=== PATIENT | male | born 1965 | race African-American/Black ===

== ENCOUNTER 2018-07-24 16:50 | Inpatient (IN) | payer BC, OTHER ==
--- NOTE | 2018-07-25 00:29 | HP ---
COWS - Scale Resting Pulse: 0= [place] 80 or Below Sweatin=Flushed/Facial Moisture Restless Observation: 0= Sits Still Pupil Size: 1= Pupils >than Normal Bone or Joint Aches: 4=Acute Joint/Muscle Pain Runny Nose/ Eye Tearin= Runny Nose/Eyes GI Upset > 30mins: 1= Stomach Cramp Tremor Observation: 2= Slight Tremor Visible Yawning Observation: 0= None Anxiety or Irritability: 4=Extreme Anxiety Goose Flesh Skin: 0=Smooth Skin COWS Score: 16 CIWA Score - Admission Criteria [facility]ASAS Guidelines: Admission for Medically Managed Detox: Requires at least one of the followin. CIWA greater than 12 2. Seizures within the past 24 hours 3. Delirium tremens within the past 24 hours 4. Hallucinations within the past 24 hours 5. Acute intervention needed for co occurring medical disorder 6. Acute intervention needed for co occurring psychiatric disorder 7. Severe withdrawal that cannot be handled at a lower level of care (continued vomiting, continued diarrhea, abnormal vital signs) requiring intravenous medication and/or fluids 8. Admission ROS [facility] Chief Complaint: Heroin withdrawal symptom s Allergies/Adverse Reactions: Allergies Allergy/AdvReac Type Severity Reaction Status Date / Time No Known Allergies Allergy Verified 07/25/18 00:25 History of Present Illness: 52 years old male with 21 years history of heroin dependence is seeking admission to detox. Patient has been in previous detox at [facility] and reports 8 years of sobriety. He has medical history of asthma, hypertension, depression and anxiety. He denies suicide attempt and suicidal ideation at this time. This is his first admission to [facility]. Exam Limitations: No Limitations - Ebola screening Have you traveled outside of the country in the last 21 days: No Have you had contact with anyone from an Ebola affected area: No Have you been sick,other than usual withdrawal symptoms: No Do you have a fever: No - Review of Systems Constitutional: Chills, Night Sweats, Changes in sleep EENT: reports: Nose Congestion Respiratory: reports: No Symptoms reported Cardiac: reports: No Symptoms Reported GI: reports: Diarrhea, Poor Appetite, Poor Fluid Intake, Vomiting, Abdominal cramping : reports: No Symptoms Reported Musculoskeletal: reports: Back Pain Integumentary: reports: Dryness, Flushing Neuro: reports: Tremors Endocrine: reports: No Symptoms Reported Hematology: reports: No Symptoms Reported Psychiatric: reports: Mood/Affect Appropiate, Anxious, Depressed Other Systems: Reviewed and Negative Patient History - Patient Medical History Hx Anemia: No Hx Asthma: Yes (Albuterol) Hx Chronic Obstructive Pulmonary Disease (COPD): No Hx Cancer: No Hx Cardiac Disorders: No Hx Congestive Heart Failure: No Hx Hypertension: Yes (Not on medication) Hx Hypercholesterolemia: No Hx Pacemaker: No HX Cerebrovascular Accident: No Hx Seizures: No Hx Dementia: No Hx Diabetes: No Hx Gastrointestinal Disorders: No Hx Liver Disease: No Hx Genitourinary Disorders: No Hx Sexually Transmitted Disorders: No Hx Renal Disease (ESRD): No Hx Thyroid Disease: No Hx Human Immunodeficiency Virus (HIV): No (Negative 2018) Hx Hepatitis C: No Hx Depression: Yes (Not on medication) Hx Suicide Attempt: No (Denies suicidal ideation at this time) Hx Bipolar Disorder: No Hx Schizophrenia: No Other Medical History: Anxiety - Not on medication - Patient Surgical History Past Surgical History: No - PPD History Previous Implant?: No Documented Results: Negative w/o proof Implanted On Prior [facility] Admission?: No PPD to be Administered?: Yes - Reproductive History Patient is a Female of Child Bearing Age (11 -55 yrs old): No (Male) - Smoking Cessation Smoking history: Current every day smoker Have you smoked in the past 12 months: Yes Aproximately how many cigarettes per day: 10 Hx Chewing Tobacco Use: No Initiated information on smoking cessation: Yes 'Breaking Loose' booklet given: 07/25/18 - Substance & Tx. History Hx Alcohol Use: No Hx Substance Use: Yes Substance Use Type: Cocaine, Opiates Hx Substance Use Treatment: Yes - Substances Abused Heroin Route: Inhalation Frequency: Daily Amount used: 6 bags to 1 bundle Age of first use: 21 Date of Last Use: 07/24/18 Family Disease History - Family Disease History Family Disease History: Heart Disease: Father, Mother Admission Physical Exam [facility] - Vital Signs Vital Signs: Vital Signs - 24 hr 07/24/18 20:41 Temperature 98.7 F Pulse Rate 73 Respiratory 18 Rate Blood Pressure 121/64 - Physical General Appearance: Yes: Moderate Distress, Tremorous, Irritable, Anxious HEENTM: Yes: EOMI, Normal ENT Inspection, Normal Voice, DORIE Respiratory: Yes: Lungs Clear, Normal Breath Sounds, No Respiratory Distress Neck: Yes: Supple Breast: Yes: Breast Exam Deferred Cardiology: Yes: Regular Rhythm, Regular Rate Abdominal: Yes: Normal Bowel Sounds, Soft Genitourinary: Yes: Within Normal Limits Back: Yes: Normal Inspection Musculoskeletal: Yes: Within Normal Limits Extremities: Yes: Tremors Neurological: Yes: Alert, Normal Mood/Affect Integumentary: Yes: Warm Lymphatic: Yes: Within Normal Limits - Diagnostic (1) Opioid dependence with withdrawal Current Visit: Yes Status: Chronic (2) Hypertension Current Visit: Yes Status: Chronic Qualifiers: Hypertension type: essential hypertension Qualified Code(s): I10 - Essential (primary) hypertension (3) Asthma Current Visit: Yes Status: Chronic Qualifiers: Asthma severity: mild Asthma persistence: intermittent Asthma complication type: unspecified Qualified Code(s): J45.20 - Mild intermittent asthma, uncomplicated (4) Depression Current Visit: Yes Status: Chronic Qualifiers: Depression Type: unspecified Qualified Code(s): F32.9 - Major depressive disorder, single episode, unspecified (5) Anxiety Current Visit: Yes Status: Chronic Cleared for Admission [facility] - Detox or Rehab [facility] Level of Care: Medically Managed Detox Regimen/Protocol: Methadone [facility] Breath Alcohol Content Breath Alcohol Content: 0 Urine Drug Screen - Results Drug Screen Negative: No Urine Drug Screen Results: MARLEE-Cocaine, OPI-Opiates, FEN-Fentanyl Inpatient Rehab Admission - Rehab Decision to Admit Inpatient rehab admission?: No
[2018-07-25] MEDS ORDERED: METHOCARBAMOL 500 MG TABLET PO PRN (00:45)
[2018-07-25] MEDS ORDERED: MENTHOL/PHENOL 1 EACH UD MM PRN (00:45)
[2018-07-25] MEDS ORDERED: MELATONIN 5 MG TABLETS PO PRN (00:45)
[2018-07-25] MEDS ORDERED: IBUPROFEN 400 MG TABLET (FP) PO PRN (00:45)
[2018-07-25] MEDS ORDERED: ACETAMINOPHEN 325 MG TABLET (FP) PO PRN ×2 (00:45)
[2018-07-25] MEDS ORDERED: hydrOXYzine PAMOATE 25 MG CAPSULE (FP) PO PRN (00:45)
[2018-07-25] MEDS ORDERED: NICOTINE POLACRILEX 2 MG GUM BUC PRN (00:45)
[2018-07-25] MEDS ORDERED: MAGNESIUM HYDROX 2400MG/30ML ORAL SUSPENSION 30 ML CUP PO PRN (00:45)
[2018-07-25] MEDS ORDERED: BISMUTH SUBSALICYLATE 524 MG/30 ML UD PO PRN (00:45)
[2018-07-25] MEDS ORDERED: cloNIDine HCL 0.1 MG TABLET PO PRN (00:45)
[2018-07-25] MEDS ORDERED: MAGNESIUM CITRATE 300 ML BOTTLE PO PRN (00:45)
[2018-07-25] MEDS ORDERED: MAG HYDROX/AL HYDROX/SIMETH 30 ML UNIT-DOSE CUP PO PRN (00:45)
[2018-07-25] MEDS ORDERED: METHADONE HCL 10 MG TABLET (FOR DETOX USE ONLY) PO ONE ×2 (00:55→10:55)
[2018-07-25] MEDS: PRENATAL VITAMINS W/ FOLIC ACID TABLET (FP) PO SCH (10:26)
[2018-07-25] MEDS: NICOTINE 14 MG/24 HOURS TOPICAL PATCH TD SCH (10:26)
[2018-07-25] MEDS ORDERED: diazePAM 5 MG TABLET PO ONE (10:34)
[2018-07-25] MEDS ORDERED: SODIUM CHLORIDE NASAL SPRAY 44 ML BOTTLE NS PRN (10:36)
[2018-07-25] MEDS ORDERED: P-EPHED 60MG/TRIPROLIDI 2.5MG TABLET PO PRN ×2 (10:37→11:38)
--- NOTE | 2018-07-25 11:38 | PN ---
[facility] COWS - Scale Resting Pulse: 0= [place] 80 or Below Sweatin=Flushed/Facial Moisture Restless Observation: 1= Difficult to Sit Still Pupil Size: 0= Normal to Room Light Bone or Joint Aches: 2= Severe Diffuse Aches Runny Nose/ Eye Tearin= None GI Upset > 30mins: 2= Nausea/Diarrhea Tremor Observation of Outstretched Hands: 2= Slight Tremor Visible Yawning Observation: 2= >3x During Session Anxiety or Irritability: 2=Irritable/Anxious Goose Flesh Skin: 0=Smooth Skin COWS Score: 13 [facility] Progress Note (SOAP) Subjective: sweats shakes interrupted sleep agitation irritable body aches nasal congestion Objective: 07/25/18 11:36 Vital Signs Temperature 97.8 F 07/25/18 09:35 Pulse Rate 60 07/25/18 09:35 Respiratory Rate 18 07/25/18 09:35 Blood Pressure 125/73 07/25/18 09:35 O2 Sat by Pulse Oximetry (%) labs pending aaox3 ambulating no acute distress Assessment: 07/25/18 11:36 withdrawal sx Plan: continue detox increase fluids labs pending methadone 10mg x one ordered valium prn acitifed prn ocean spray
[2018-07-25] MEDS: diazePAM 5 MG TABLET PO PRN (22:40)
[2018-07-25] MEDS: THIAMINE HCL 100 MG TABLET (FP) PO SCH (22:40)
[2018-07-26] MEDS ORDERED: METHADONE HCL 10 MG TABLET (FOR DETOX USE ONLY) PO ONE (10:00)
[2018-07-26] MEDS: PRENATAL VITAMINS W/ FOLIC ACID TABLET (FP) PO SCH (10:18)
[2018-07-26] MEDS: NICOTINE 14 MG/24 HOURS TOPICAL PATCH TD SCH (10:18)
--- NOTE | 2018-07-26 11:36 | PN ---
[facility] COWS - Scale Resting Pulse: 0= [place] 80 or Below Sweatin=Flushed/Facial Moisture Restless Observation: 1= Difficult to Sit Still Pupil Size: 0= Normal to Room Light Bone or Joint Aches: 2= Severe Diffuse Aches Runny Nose/ Eye Tearin= Nasal Congestion GI Upset > 30mins: 0= None Tremor Observation of Outstretched Hands: 2= Slight Tremor Visible Yawning Observation: 1= 1-2x During Session Anxiety or Irritability: 2=Irritable/Anxious Goose Flesh Skin: 0=Smooth Skin COWS Score: 11 [facility] Progress Note (SOAP) Subjective: agitation sweats shakes interrupted sleep Objective: 07/26/18 11:36 Vital Signs Temperature 97.5 F L 07/26/18 09:56 Pulse Rate 60 07/26/18 09:56 Respiratory Rate 16 07/26/18 09:56 Blood Pressure 146/89 07/26/18 09:56 O2 Sat by Pulse Oximetry (%) labs pending aaox3 ambulating no acute distress Assessment: 07/26/18 11:36 withdrawal sx Plan: continue detox increase fluids labs pending
[2018-07-26] MEDS: diazePAM 5 MG TABLET PO PRN (12:14)
[2018-07-26 12:51] LABS: HEMATOCRIT 41.1 % (35.4-49); HEMOGLOBIN 13.7 GM/dL (11.7-16.9); MCH 30.8 pg (25.7-33.7); MCHC 33.4 g/dl (32.0-35.9); MEAN CELL VOLUME 92.5 fl (80-96); MEAN PLT VOLUME 8.3 fl (7.5-11.1); PLATELET COUNT 258 K/MM3 (134-434); RBC 4.45 M/mm3 (4.00-5.60); WHITE BLOOD COUNT 2.8 K/mm3 (4.0-10.0)
[2018-07-26 13:05] LABS: ALBUMIN 3.2 g/dl (3.4-5.0); ALK PHOS 84 U/L (45-117); ANION GAP 7 MMOL/L (8-16); BILIRUBIN,TOTAL 0.5 mg/dL (0.2-1); BLOOD UREA NITROGEN 10 mg/dL (7-18); CALCIUM 8.8 mg/dL (8.5-10.1); CHLORIDE 107 mmol/L (98-107); CO2 27 mmol/L (21-32); CREATININE 0.9 mg/dL (0.55-1.3); GLUCOSE,RANDOM 130 mg/dL (74-106); POTASSIUM 4.1 mmol/L (3.5-5.1); SGOT/AST 27 U/L (15-37); SGPT/ALT 30 U/L (13-61); SODIUM 141 mmol/L (136-145)
[2018-07-26] MEDS: THIAMINE HCL 100 MG TABLET (FP) PO SCH (22:10)
[2018-07-27] MEDS ORDERED: METHADONE HCL 10 MG TABLET (FOR DETOX USE ONLY) PO ONE (10:00)
[2018-07-27] MEDS: PRENATAL VITAMINS W/ FOLIC ACID TABLET (FP) PO SCH (10:29)
[2018-07-27] MEDS: NICOTINE 14 MG/24 HOURS TOPICAL PATCH TD SCH (10:29)
--- NOTE | 2018-07-27 10:35 | PN ---
[facility] Progress Note (SOAP) Subjective: irritable agitation sweats Objective: 07/27/18 10:35 Vital Signs Temperature 98.1 F 07/27/18 09:41 Pulse Rate 74 07/27/18 09:41 Respiratory Rate 18 07/27/18 09:41 Blood Pressure 143/92 07/27/18 09:41 O2 Sat by Pulse Oximetry (%) aaox3 ambulating no acute distress Assessment: 07/27/18 10:36 withdrawal sx Plan: continue detox increase fluids
[2018-07-27] MEDS: diazePAM 5 MG TABLET PO PRN (12:56)
[2018-07-28] MEDS ORDERED: METHADONE HCL 10 MG TABLET (FOR DETOX USE ONLY) PO ONE (10:00)
[2018-07-28] MEDS: PRENATAL VITAMINS W/ FOLIC ACID TABLET (FP) PO SCH (10:09)
[2018-07-28] MEDS: NICOTINE 14 MG/24 HOURS TOPICAL PATCH TD SCH (10:09)
--- NOTE | 2018-07-28 12:38 | PN ---
[facility] Progress Note (SOAP) Subjective: agitation Objective: 07/28/18 12:35 Vital Signs Temperature 97.5 F L 07/28/18 10:09 Pulse Rate 75 07/28/18 10:09 Respiratory Rate 18 07/28/18 10:09 Blood Pressure 141/71 07/28/18 10:09 O2 Sat by Pulse Oximetry (%) aaox3 ambulating no acute distress Assessment: 07/28/18 12:36 mild withdrawal Plan: continue detox d/c in am
[2018-07-29] MEDS ORDERED: METHADONE HCL 5 MG TABLET (FOR DETOX USE ONLY) PO ONE (06:00)
[2018-07-29] MEDS: NICOTINE 14 MG/24 HOURS TOPICAL PATCH TD SCH (10:55)
[2018-07-29] MEDS: PRENATAL VITAMINS W/ FOLIC ACID TABLET (FP) PO SCH (10:55)
--- NOTE | 2018-07-29 14:27 | PN ---
[facility] Progress Note (SOAP) Subjective: Mild shakes and irritability Objective: 07/29/18 14:26 Vital Signs 07/29/18 07/29/18 08:32 09:45 Temperature 96.3 F L 97.7 F Pulse Rate 59 L 85 Respiratory 18 18 Rate Blood Pressure 119/71 150/74 Laboratory Last Values WBC 2.8 K/mm3 (4.0-10.0) L 07/26/18 08:00 RBC 4.45 M/mm3 (4.00-5.60) 07/26/18 08:00 Hgb 13.7 GM/dL (11.7-16.9) 07/26/18 08:00 Hct 41.1 % (35.4-49) 07/26/18 08:00 MCV 92.5 fl (80-96) 07/26/18 08:00 MCH 30.8 pg (25.7-33.7) 07/26/18 08:00 MCHC 33.4 g/dl (32.0-35.9) 07/26/18 08:00 RDW 14.0 % (11.9-15.9) 07/26/18 08:00 Plt Count 258 K/MM3 (134-434) 07/26/18 08:00 MPV 8.3 fl (7.5-11.1) 07/26/18 08:00 Sodium 141 mmol/L (136-145) 07/26/18 08:00 Potassium 4.1 mmol/L (3.5-5.1) 07/26/18 08:00 Chloride 107 mmol/L (98-107) 07/26/18 08:00 Carbon Dioxide 27 mmol/L (21-32) 07/26/18 08:00 Anion Gap 7 MMOL/L (8-16) L 07/26/18 08:00 BUN 10 mg/dL (7-18) 07/26/18 08:00 Creatinine 0.9 mg/dL (0.55-1.3) 07/26/18 08:00 Creat Clearance w eGFR 88.27 (>60) 07/26/18 08:00 Random Glucose 130 mg/dL (74-106) H 07/26/18 08:00 Calcium 8.8 mg/dL (8.5-10.1) 07/26/18 08:00 Total Bilirubin 0.5 mg/dL (0.2-1) 07/26/18 08:00 AST 27 U/L (15-37) 07/26/18 08:00 ALT 30 U/L (13-61) 07/26/18 08:00 Alkaline Phosphatase 84 U/L (45-117) 07/26/18 08:00 Total Protein 6.0 g/dl (6.4-8.2) L 07/26/18 08:00 Albumin 3.2 g/dl (3.4-5.0) L 07/26/18 08:00 RPR Titer Nonreactive (NONREACTIVE) 07/26/18 08:00 Labs noted Assessment: 07/29/18 14:27 Withdrawal sx Plan: Continue detox
--- NOTE | 2018-07-29 15:38 | DS ---
[facility] Detox Discharge Summary Admission Date: 07/24/18 Discharge Date: 07/29/18 - History Pertinent Past History: Asthma, depression, hypertension - Physical Exam Results Vital Signs: Vital Signs Temperature 97.7 F 07/29/18 09:45 Pulse Rate 85 07/29/18 09:45 Respiratory Rate 18 07/29/18 09:45 Blood Pressure 150/74 07/29/18 09:45 O2 Sat by Pulse Oximetry (%) Pertinent Admission Physical Exam Findings: Withdrawal sx Laboratory Last Values WBC 2.8 K/mm3 (4.0-10.0) L 07/26/18 08:00 RBC 4.45 M/mm3 (4.00-5.60) 07/26/18 08:00 Hgb 13.7 GM/dL (11.7-16.9) 07/26/18 08:00 Hct 41.1 % (35.4-49) 07/26/18 08:00 MCV 92.5 fl (80-96) 07/26/18 08:00 MCH 30.8 pg (25.7-33.7) 07/26/18 08:00 MCHC 33.4 g/dl (32.0-35.9) 07/26/18 08:00 RDW 14.0 % (11.9-15.9) 07/26/18 08:00 Plt Count 258 K/MM3 (134-434) 07/26/18 08:00 MPV 8.3 fl (7.5-11.1) 07/26/18 08:00 Sodium 141 mmol/L (136-145) 07/26/18 08:00 Potassium 4.1 mmol/L (3.5-5.1) 07/26/18 08:00 Chloride 107 mmol/L (98-107) 07/26/18 08:00 Carbon Dioxide 27 mmol/L (21-32) 07/26/18 08:00 Anion Gap 7 MMOL/L (8-16) L 07/26/18 08:00 BUN 10 mg/dL (7-18) 07/26/18 08:00 Creatinine 0.9 mg/dL (0.55-1.3) 07/26/18 08:00 Creat Clearance w eGFR 88.27 (>60) 07/26/18 08:00 Random Glucose 130 mg/dL (74-106) H 07/26/18 08:00 Calcium 8.8 mg/dL (8.5-10.1) 07/26/18 08:00 Total Bilirubin 0.5 mg/dL (0.2-1) 07/26/18 08:00 AST 27 U/L (15-37) 07/26/18 08:00 ALT 30 U/L (13-61) 07/26/18 08:00 Alkaline Phosphatase 84 U/L (45-117) 07/26/18 08:00 Total Protein 6.0 g/dl (6.4-8.2) L 07/26/18 08:00 Albumin 3.2 g/dl (3.4-5.0) L 07/26/18 08:00 RPR Titer Nonreactive (NONREACTIVE) 07/26/18 08:00 Labs noted - Treatment Hospital Course: Detox Protocol Followed, Detoxed Safely, Responded well, Discharged Condition Good, Rehab Referral Accepted Patient has Accepted a Rehab Referral to: [facility] Rehab - Medication Discharge Medications: Ambulatory Orders NK [No Known Home Medication] 07/27/18 - Diagnosis (1) Anxiety Current Visit: Yes Status: Chronic (2) Asthma Current Visit: Yes Status: Chronic Qualifiers: Asthma severity: mild Asthma persistence: intermittent Asthma complication type: unspecified Qualified Code(s): J45.20 - Mild intermittent asthma, uncomplicated (3) Depression Current Visit: Yes Status: Chronic Qualifiers: Depression Type: unspecified Qualified Code(s): F32.9 - Major depressive disorder, single episode, unspecified (4) Hypertension Current Visit: Yes Status: Acute Qualifiers: Hypertension type: essential hypertension Qualified Code(s): I10 - Essential (primary) hypertension (5) Opioid dependence with withdrawal Current Visit: Yes Status: Chronic - AMA Did Patient Leave Against Medical Advice: No
[2018-07-29 17:55] VITALS: BP 114/64; PULSE 73; TEMP 98.6
== END 2018-07-29 18:29 | disposition other institution (70) | DRG 773 ==
LOC: YASAS 16:50 → Y6N 23:55
PROVIDERS: ADMIT Surgery; ATTEND Surgery
PROC: HZ2ZZZZ Detoxification Services for Substance Abuse Treatment (ICD-10-PCS; principal; 2018-07-24)
DX: F11.23 Opioid dependence with withdrawal (principal); F41.8 Other specified anxiety disorders; F32.9 Major depressive disorder, single episode, unspecified; J45.20 Mild intermittent asthma, uncomplicated; I10 Essential (primary) hypertension
CPT/HCPCS: 36415; 80053; 85027; 86593; J0735

== ENCOUNTER 2018-07-29 18:24 | Inpatient (IN) | payer OTHER ==
[2018-07-29] MEDS ORDERED: hydrOXYzine PAMOATE 50 MG CAPSULE (FP) PO PRN (19:21)
[2018-07-29] MEDS ORDERED: MENTHOL/PHENOL 1 EACH UD MM PRN (19:21)
[2018-07-29] MEDS ORDERED: IBUPROFEN 400 MG TABLET (FP) PO PRN (19:21)
[2018-07-29] MEDS ORDERED: MAGNESIUM HYDROX 2400MG/30ML ORAL SUSPENSION 30 ML CUP PO PRN (19:21)
[2018-07-29] MEDS ORDERED: MAG HYDROX/AL HYDROX/SIMETH 30 ML UNIT-DOSE CUP PO PRN (19:21)
[2018-07-29] MEDS ORDERED: LOPERAMIDE HCL 2 MG CAPSULE PO PRN (19:21)
[2018-07-29] MEDS ORDERED: P-EPHED 60MG/TRIPROLIDI 2.5MG TABLET PO PRN (19:21)
[2018-07-29] MEDS ORDERED: MAGNESIUM CITRATE 300 ML BOTTLE PO PRN (19:21)
[2018-07-29] MEDS ORDERED: guaiFENesin 200 MG/10 ML 10 ML UNIT-DOSE CUPS PO PRN (19:21)
--- NOTE | 2018-07-29 19:21 | HP ---
[facility] Rehab Assess/Revision - Admission History Admitted to Rehab from: [facility] Date of Admission to Rehab: 07/29/18 - Findings Detox History & Physical reviewed: Yes Concur with findings: Yes Comments/Additional Findings: for rehab as protocol Inpatient Rehab Admission - Rehab Decision to Admit Inpatient rehab admission?: Yes - Initial Determination Are CD services needed?: Yes Free of communicable disease: Yes Not in need of hospitalization: Yes - Rehab Admission Criteria Previous failed treatment: Yes Poor recovery environment: Yes Comorbidities: Yes Lacks judgement: No Patient is meeting Inpatient Rehab admission criteria:: Yes
[2018-07-29] MEDS ORDERED: NICOTINE POLACRILEX 2 MG GUM BC PRN (19:24)
[2018-07-29] MEDS ORDERED: SODIUM CHLORIDE NASAL SPRAY 44 ML BOTTLE NS PRN (19:25)
[2018-07-29] MEDS: THIAMINE HCL 100 MG TABLET (FP) PO SCH (21:31)
[2018-07-29] MEDS: MELATONIN 5 MG TABLETS PO PRN (21:31)
[2018-07-30] MEDS: NICOTINE 21 MG/24 HOURS TOPICAL PATCH TD SCH (10:32)
[2018-07-30] MEDS: PRENATAL VITAMINS W/ FOLIC ACID TABLET (FP) PO SCH (10:32)
[2018-07-30] MEDS: ACETAMINOPHEN 325 MG TABLET (FP) PO PRN ×2 (12:44→21:55)
[2018-07-30] MEDS: MELATONIN 5 MG TABLETS PO PRN (21:54)
[2018-07-30] MEDS: THIAMINE HCL 100 MG TABLET (FP) PO SCH (21:54)
[2018-07-31 07:15] VITALS: BP 141/98; PULSE 69; TEMP 98.3
[2018-07-31] MEDS: PRENATAL VITAMINS W/ FOLIC ACID TABLET (FP) PO SCH (09:46)
[2018-07-31] MEDS: NICOTINE 21 MG/24 HOURS TOPICAL PATCH TD SCH (09:47)
[2018-07-31] MEDS: ACETAMINOPHEN 325 MG TABLET (FP) PO PRN (12:18)
--- NOTE | 2018-07-31 15:54 | PN ---
[facility] Progress Note Note: Temperature 98.3 F 07/31/18 06:00 Pulse Rate 69 07/31/18 06:00 Respiratory Rate 18 07/31/18 06:00 Blood Pressure 141/98 07/31/18 06:00 O2 Sat by Pulse Oximetry (%) NOTIFIED BY NURSING STAFF PATIENT REQUESTED TO SIGN OUT AMA. PATIENT EVALUATED BY BULK STATION AGENT AND ENCOURAGED TO COMPLETE REHAB BUT PATIENT REFUSED. PATIENT STATED TO BULK STATION AGENT " I WANT TO GO FOR TREATMENT IN [place] CLOS[place] TO FAMILY". PATIENT EXPLAINED RISK FACTORS OF RELAPSE WITH SIGNING OUT AMA BUT WITH NO EFFECT AND REFUSED MULTIPLE TIMES TO STAY IN TREATMENT. PATIENT MEDICALLY STABLE AND DENIES SI/HI. PATIENT ENCOURAGED TO ATTEND GROUP MEETINGS AND TO FOLLOW UP WITH PCP TO CONTINUE MEDICAL MANAGEMENT.
== END 2018-07-31 15:10 | disposition left against medical advice (07) | DRG 770 ==
LOC: YASAS 18:24 → Y3W 18:25
PROVIDERS: ADMIT Neuromusculoskeletal Medicine & OMM; ATTEND Neuromusculoskeletal Medicine & OMM
PROC: HZ42ZZZ Group Counseling for Substance Abuse Treatment, Cognitive-Behavioral (ICD-10-PCS; principal; 2018-07-29)
DX: F11.20 Opioid dependence, uncomplicated (principal); J45.909 Unspecified asthma, uncomplicated